=== PATIENT | female | born 1940 | race Caucasian/White ===

== ENCOUNTER 2017-08-02 09:59 | Outpatient (CLI) | payer MEDICARE, OTHER ==
--- NOTE | 2017-08-02 13:07 | RAD ---
FOUR VIEWS OF THE LUMBAR SPINE: DATE: 08/02/17. COMPARISON: None. HISTORY: Spondylosis of the lumbar spine, chronic back pain, bilateral radiculopathy, right greater than left. FINDINGS: Postoperative clips in the right upper quadrant suggest prior cholecystectomy. Arteriovascular stent material overlies the L1 and L2 vertebral bodies. Lumbar pedicles appear intact on frontal imaging. There is L4-5 and L5-S1 facet hypertrophic change. There is disk space narrowing and anterior osteophyte formation at L2-3, L3-4, and L4-5. There is no anterolisthesis or retrolisthesis seen on neutral lateral imaging. With flexion there is no anterol isthesis or retrolisthesis. In addition, extension imaging demonstrates no significant anterolisthes is or retrolisthesis. There is atherosclerotic calcification of the abdominal aorta. IMPRESSION: Degenerative changes. No acute osseous abnormality. POS: [facility]
--- NOTE | 2017-08-02 13:07 | MRI ---
MRI LUMBAR SPINE WITHOUT CONTRAST: Date: 08/02/17 COMPARISON: 04/13/16. HISTORY: Spondylosis of lumbar spine, chronic back pain, worsening bilateral radiculopathy, right greater than left. TECHNIQUE: Multiplanar, multisequence MR imaging of the lumbar spine is obtained without contrast. FINDINGS: The sagittal STIR imaging demonstrates no focal area of osseous marrow edema. Assuming five lumbar-ty pe vertebral bodies, the conus medullaris terminates at the T12-L1 level. T12-L1: Intervertebral disc height and signal intensity is within normal limits with no significant central c anal or neural foraminal stenosis. L1-2: Mild bilateral facet hypertrophy. Intervertebral disc height and signal intensity is within normal li mits with no significant central canal or neural foraminal stenosis. L2-3: Mild bilateral facet hypertrophy. Intervertebral disc height and signal intensity is within normal li mits with no significant central canal or neural foraminal stenosis. There is anterior osteophyte for mation noted. L3-4: Mild bilateral facet hypertrophy. Mild disc space narrowing and disc bulge with no significant centra l canal or neural foraminal stenosis. L4-5: There is bilateral facet hypertrophy. There is disc space narrowing, disc desiccation, and mild disc bulge. No significant central canal or neural foraminal stenosis. L5-S1: There is disc space narrowing and disc desiccation. There is bilateral facet hypertrophy. There is no significant central canal or neural foraminal stenosis. There is a tiny T2 hyperintense lesion within the upper pole of the right kidney likely representing a tiny stable cyst. IMPRESSION: Stable lumbar spine degenerative changes with no significant central canal or neural foraminal stenos is. POS: [facility]
== END 2017-08-02 10:00 | disposition home or self-care (01) ==
LOC: SCSMRI 09:59
PROVIDERS: ATTEND Nurse Practitioner Family
DX: M47.816 Spondylosis without myelopathy or radiculopathy, lumbar region (principal); M47.896 Other spondylosis, lumbar region
CPT/HCPCS: 72120; 72148

== ENCOUNTER 2017-11-28 10:54 | Outpatient (CLI) | payer MEDICARE, OTHER ==
[~2017-11-28 10:54] MED LIST: Gadobenate Dimeglumine 529 MG/1 ML (20ML VIAL) ONE
[2017-11-28 11:36] LABS: Estimated GFR-MDRD - POC Greater than 90
--- NOTE | 2017-11-28 13:17 | MRI ---
BRAIN MRI WITH AND WITHOUT CONTRAST: HISTORY: Numbness and tingling on the left side of the face. Left-sided headache. Previous left orbital floo r fracture. Evaluate for trigeminal neuralgia. COMPARISON: 09/15/2015 TECHNIQUE: A brain MRI is performed with and without intravenous Gadolinium administration. Multisequential, mu ltiplanar imaging is performed. Cranial nerve protocol is utilized. FINDINGS: The calvarium has a normal T1 marrow signal intensity. The midline brain parenchymal structures are unremarkable. No parenchymal mass, mass effect, or midline shift. Brain volume is age appropriate. Cortical raymundo white matter differentiation is preserved. The ventricles and sulci are patent and symmetric. Stable T2 and FLAIR white matter hyperintensities due to chronic small vessel ischemic change. Adequate aeration of the sinuses and mastoid air cells. No pathologic enhancement of the brain parenchyma. There is appropriate signal intensity in the V and VII and VIII cranial nerve complexes bilaterally. No abnormal enhancement of enhancing masses. IMPRESSION: 1. Absent restricted diffusion. 2. No acute infarction. 3. No magnetic resonance evidence of abnormal enhancement involving the VII, VIII or V cranial nerve complexes. 4. Chronic small vessel ischemic change of the white matter. POS: [facility]
== END 2017-11-28 10:55 | disposition home or self-care (01) ==
LOC: SCSMRI 10:54
PROVIDERS: ATTEND Psychiatry & Neurology Neurology
DX: G50.0 Trigeminal neuralgia (principal)
CPT/HCPCS: 70553; 82565; A9579

== ENCOUNTER 2018-02-05 12:42 | Outpatient (CLI) | payer MEDICARE, OTHER ==
--- NOTE | 2018-02-05 13:16 | RAD ---
THREE VIEWS LUMBAR SPINE: History: Fall, vertebral collapse. FINDINGS: AP, lateral, and coned down views of the lumbar spine are obtained. Images demonstrate significant vertebral height loss at the L1 vertebral level. This has progressed s leila the previous comparison exam from 12-11-17. Arterial stents are seen in the superior mesenteric artery as well as right and left iliac arteries, as well as the right and left renal arteries. There is grade 1 anterolisthesis of L4 on L5 with disc space height loss seen at this level. IMPRESSION: L1 increasing compression fracture and height loss. POS: [facility]
== END 2018-02-05 12:43 | disposition home or self-care (01) ==
LOC: TBSIIMAG 12:42
PROVIDERS: ATTEND Neurological Surgery
DX: S32.019A Unspecified fracture of first lumbar vertebra, initial encounter for closed fracture (principal)
CPT/HCPCS: 72100

== ENCOUNTER 2018-03-31 08:52 | Outpatient (CLI) | payer MEDICARE, OTHER ==
--- NOTE | 2018-03-31 11:10 | MRI ---
MRI LUMBAR SPINE NONCONTRAST: HISTORY: Back pain. Compression fracture. COMPARISON: 08/02/17. FINDINGS: Conus medullaris has a normal appearance. Compression of the L1 vertebral body with loss of height b y greater than 50% correlates with compression on radiographs from 02/05/18. Edema remains throughout the compressed vertebral body and extends into each pedicle. There is up to 0.5 cm retropulsion of the compressed superior end plate, although it results in very little effacement of the ventral aspec t of the thecal sac on the axial images. The neural foramen remain patent. Other vertebral body heights and bone marrow signal are within normal limits. Mild disk bulges at th e lowest 3 levels and other degenerative changes are stable without focal nerve root compression evid ent. IMPRESSION: 1. Residual edema within the L1 compression fracture with very mild retropulsion, as detailed above. Degree of compression is stable compared to the most recent radiograph. 2. Mild degenerative changes lower lumbar spine are stable. POS: [facility]
== END 2018-03-31 08:53 | disposition home or self-care (01) ==
LOC: SCSMRI 08:52
PROVIDERS: ATTEND Neurological Surgery
DX: M47.26 Other spondylosis with radiculopathy, lumbar region (principal); S32.019D Unspecified fracture of first lumbar vertebra, subsequent encounter for fracture with routine healing
CPT/HCPCS: 72148

== ENCOUNTER 2018-04-23 11:11 | Outpatient (CLI) | payer MEDICARE, OTHER ==
[2018-04-23 13:13] LABS: Hemoglobin 13.2 g/dL (12.0-16.0); Mean Corpuscular HGB CONC 33.5 g/dL (32.0-36.0); Mean Corpuscular Hemoglobin 28.9 pg (27.0-31.0); Mean Corpuscular Volume 86.2 fL (78.0-98.0); Mean Platelet Volume 6.2 fL (7.4-10.4); Platelet Count 328 thou/uL (130-400); RBC Distribution Width 12.9 % (11.5-14.5); Red Blood Cell (RBC) Count 4.57 mill/uL (4.20-5.40); White Blood Cell (WBC) Count 8.6 thou/uL (4.8-10.8)
[2018-04-23 13:22] LABS: Prothrombin Time 12.9 SEC (12.0-14.7)
[2018-04-23 13:23] LABS: PTT 33.9 SEC (22.9-36.1)
[2018-04-23 13:30] LABS: Anion Gap 11 mmol/L (10-20); BUN (Urea Nitrogen) 12 mg/dL (9.8-20.1); Calc. Creatinine Clearance 0 mL/min (70-130); Calcium 9.9 mg/dL (7.8-10.44); Carbon Dioxide 28 mmol/L (23-31); Chloride 92 mmol/L (98-107); Estimated GFR-MDRD Greater than 90; Glucose 90 mg/dL (83-110); Potassium 4.2 mmol/L (3.5-5.1); Sodium 127 mmol/L (136-145)
--- NOTE | 2018-04-27 20:38 | EKG ---
Test Reason : Blood Pressure : / mmHG Vent. Rate : 061 BPM Atrial Rate : 061 BPM P-R Int : 174 ms QRS Dur : 116 ms QT Int : 432 ms P-R-T Axes : 034 -15 021 degrees QTc Int : 434 ms Normal sinus rhythm Possible Anterior infarct , age undetermined Abnormal ECG When compared with ECG of 06-JAN-2012 11:57, Borderline criteria for Anterior infarct are now Present Confirmed by Anabel GOMEZ ([id number]) on 04/27/2018 8:38:14 PM Referred By: JADYN Confirmed By:Anabel GOMEZ
== END 2018-04-23 11:12 | disposition home or self-care (01) ==
LOC: LABBT 11:11
PROVIDERS: ATTEND Neurological Surgery
DX: Z01.818 Encounter for other preprocedural examination (principal); M48.56XA Collapsed vertebra, not elsewhere classified, lumbar region, initial encounter for fracture
CPT/HCPCS: 80048; 85027; 85610; 85730; 93005; 93010

== ENCOUNTER 2018-04-24 11:21 | Day surgery (SDC) | payer MEDICARE, OTHER ==
[2018-04-23 11:42] VITALS: BMI 32.8
--- NOTE | 2018-04-23 12:50 | HP ---
HISTORY OF PRESENT ILLNESS: This is a 77-year-old female who is following up from an ER visit where she sustained an L1 compression fracture on 12/05/2017. The patient states that she has pain in the low back, but it is improving some. She is getting home health and doing some exercises on her own. She had her bone density test done last year showing osteopenia. She is taking calcium and vitamin D and she was supposed to have another test next month. The patient states that the pain is limiting her activities. She cannot tolerate the brace any longer. She has been in for several months at th is point. She has no new weakness or numbness, but pain in the legs. REVIEW OF SYSTEMS: A 10-point review of systems has been completed and is negative other than stated above in the HPI. 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 PAST SURGICAL HISTORY: Deviated septum, SMA stent in 2011, renal artery stent in 2012, renal artery stent 2016. Lumbar facet blocks, hysterectomy. FAMILY HISTORY: Father is , diagnosed with heart disease, hypertension. Mother is , diagnosed with heart disease, hypertension and a stroke. Siblings are . She has a son and a daughter who is alive. SOCIAL HISTORY: The patient is a former smoker, quit in 2016. No alcohol or other illicit drug use. She is retired. MEDICATIONS: Montelukast sodium, spironolactone, HCTZ, tramadol, hydrochlorothiazide, fluoxetine, tr azodone, levothyroxine sodium, carvedilol, losartan, famotidine, amitriptyline, aspirin 81 mg, pravas tatin sodium, Trileptal, CoQ10, calcium, vitamin D3, acetaminophen. ALLERGIES: PENICILLIN, CODEINE, TETRACYCLINE. PHYSICAL EXAMINATION: GENERAL: Well-appearing, alert and oriented, in no visible distress. HEENT: Head is normocephalic, atraumatic. Eyes; equal, round, reactive to light. Extraocular movem ents are intact. Hearing is intact. Moist mucous membranes. RESPIRATORY: Normal work of breathing on room air. CARDIAC: Regular rate and rhythm. Normal S1, S2. NEUROLOGIC: Gait and station are normal. Motor exam: There is normal strength in the iliopsoas, qu adriceps, hamstrings, anterior EHL, gastroc and toe flexors. SPINE: Tender at L1, paraspinal muscle spasms on both sides. IMAGING: MRI L1; stir signal change and compression vertebral body, canals open. ASSESSMENT: Stable burst fracture first lumbar vertebrae. PLAN: Dr. Ragland has offered kyphoplasty. We have obtained informed consent. We have discussed indications, risks, benefits, alternatives, and expected results from surgery. The risks discussed i ncluded, but were not limited to bleeding, infection, CSF leak, nerve damage, weakness, incontinence, cement embolization, cauda equina injury, arachnoiditis, paralysis, ventilator dependence, wheelchai r dependence, loss of vision, cardiopulmonary complications of anesthesia or . Long-term compli cations discussed included, but were not limited to spinal instability and the need for further surge ry. She states that she understands the risks and is willing to proceed with surgery.
[2018-04-24] MEDS ORDERED: Iopamidol 370 76% 50 ML VIAL FS ONE (12:24)
[2018-04-24] MEDS ORDERED: PHENYLEPHRINE-NS 100 MCG/ML 10 ML SYRINGE ONE (13:08)
[2018-04-24] MEDS ORDERED: Lidocaine 1% PF 5 ML VIAL ONE (13:08)
[2018-04-24] MEDS ORDERED: PROPOFOL 200 MG/20 ML VIAL ONE (13:08)
[2018-04-24] MEDS ORDERED: Glycopyrrolate 0.2 MG/ML 5 ML SYRINGE ONE (13:08)
[2018-04-24] MEDS ORDERED: ePHEDrine/0.9% NaCl/PF SYRINGE 50 mg/10 ml ONE (13:08)
[2018-04-24] MEDS ORDERED: Lidocaine 1% (PF) 30 ML VIAL ONE (13:15)
[2018-04-24] MEDS ORDERED: Midazolam HCl 2 mg/2 ml Vial ONE (13:37)
[2018-04-24] MEDS ORDERED: Fentanyl 100 MCG/2 ML VIAL ONE ×2 (13:37→15:34)
[2018-04-24] MEDS ORDERED: Propofol 500 MG/50 ML VIAL ONE (13:38)
[2018-04-24] MEDS ORDERED: Clindamycin/D5W 900 mg/50 ml Premix Bag ONE ×2 (13:44→17:41)
[2018-04-24] MEDS ORDERED: Levofloxacin 500 mg/D5W 100 ml Premix Bag ONE (13:45)
[2018-04-24] MEDS ORDERED: SUGAMMADEX SODIUM 200 MG/2 ML VIAL ONE (15:09)
[2018-04-24] MEDS ORDERED: traMADol HCl 50 MG TAB ONE (17:39)
--- NOTE | 2018-04-24 19:48 | OP ---
PREPROCEDURAL INDICATION: Treat pain. PREPROCEDURAL DIAGNOSIS: L1 compression fracture, nonhealing, with intractable pain. POSTPROCEDURAL DIAGNOSIS: L1 compression fracture, nonhealing, with intractable pain. PROCEDURE PERFORMED: Radiographically guided cement augmentation procedure (kyphoplasty) first lumba r vertebrae. PREPROCEDURAL MEDICATION: Levaquin 500 mg IV and clindamycin 900 mg IV. DRAINS: Zero. DRAIN TYPE: None. PROCEDURE IN DETAIL: The patient was brought to the biplane angio suite. General endotracheal anest hesia was induced and she was positioned prone on gel-filled chest rolls. The biplane angio table wa s positioned with AP and lateral fluoro radiographs centered on the L1 vertebral segment. We chose o ur entry points to access the pedicles and anesthetized under the entry points. The thoracic skin wa s sterilely prepped and draped. We opened with an 11 blade knife. We placed a Jamshidi needle into each of the pedicles. This was done under careful radiographic guidance entering the pedicle at 10 o 'clock on the left and at 2 o'clock on the right. We advanced through the pedicles under radiographi c guidance into the vertebral body aiming towards the midline at the anterior inferior margin of the vertebral body. The Jamshidi needles were positioned. We removed the guide stylet and advanced a linda ne biopsy probe into the vertebral body. One bone biopsy was taken and sent to pathology. We then u sed a bone drill to drill out to the anterior inferior portion of the vertebral body and then kyphopl asty balloons were inserted through the access cannula into the vertebral body. These kyphoplasty ba lloons were inflated inside the vertebral body and lifted the superior endplate and moved the inferio r endplate as well. Cement was prepared and once it was at the appropriate consistency, our balloons were deflated and withdrawn. We brought cement deposition cannulae through the access ports into th e vertebral body. We deposited methyl methacrylate cement into the cavities created by our kyphoplas ty balloons. The cement was administered until there was a small breach of the inferior endplate wit h cement in the disk space, more cement was placed from the left access cannulae that spread out unde rneath the superior endplate and interdigitated with fracture fragments across the vertebral body. A total of 3-4 mL of cement was administered. Once the cement was solid, the Jamshidi cannulae were r emoved. Cement was left behind. Spencer were applied to our access incisions and sterile dressings were applied. This was a clean case and no contamination.
== END 2018-04-24 18:33 | disposition home or self-care (01) ==
LOC: CCL 11:21
PROVIDERS: ATTEND Neurological Surgery
PROC: 0QS03ZZ Reposition Lumbar Vertebra, Percutaneous Approach (ICD-10-PCS; principal; 2018-04-24)
PROC: 0QU03JZ Supplement Lumbar Vertebra with Synthetic Substitute, Percutaneous Approach (ICD-10-PCS; 2018-04-24)
PROC: 0Q903ZX Drainage of Lumbar Vertebra, Percutaneous Approach, Diagnostic (ICD-10-PCS; 2018-04-24)
DX: S32.011A Stable burst fracture of first lumbar vertebra, initial encounter for closed fracture (principal); M85.80 Other specified disorders of bone density and structure, unspecified site; I10 Essential (primary) hypertension; E78.00 Pure hypercholesterolemia, unspecified; E03.9 Hypothyroidism, unspecified; K21.9 Gastro-esophageal reflux disease without esophagitis; M19.90 Unspecified osteoarthritis, unspecified site; F41.9 Anxiety disorder, unspecified; J32.9 Chronic sinusitis, unspecified; Z79.82 Long term (current) use of aspirin; Z79.899 Other long term (current) drug therapy; Z88.0 Allergy status to penicillin; Z88.1 Allergy status to other antibiotic agents; Z88.5 Allergy status to narcotic agent; W19.XXXA Unspecified fall, initial encounter
CPT/HCPCS: 22511; 88307; 88311; 88341; 88342; 96374; C1713 ×2; J1956; J2001; J2250; J2704; J3010; J3490

== ENCOUNTER 2018-08-14 14:23 | Outpatient (CLI) | payer MEDICARE, OTHER ==
--- NOTE | 2018-08-14 16:16 | MRI ---
MRI LUMBAR SPINE 08/14/18 COMPARISON: Comparison made to a previous exam from 03/31/18. History of back pain since fall. Multiplanar and multisequence noncontrast enhanced MRI images lumbar spine is obtained. Approximately 50% compression fracture of the L1 vertebral body seen. This is unchanged since the pre vious exam from 04/08/18. There continues to be edema and signal abnormality changes within the L1 vertebral level. There is mi ld retropulsion of the compressed vertebra into the spinal canal resulting in approximately 5 mm of p osterior displacement. The neural foramina are patent. L1-2, L3-4: Unremarkable. L3-4: There is a mild broad based disc bulge and mild facet hypertrophy. Central canal and neural for amen are patent. L4-5: There is a mild broad based disc bulge with bilateral facet and ligamentum flavum hypertrophy. This results in mild central and lateral recess stenosis. The neural foramen are patent. L5-S1: Mild facet hypertrophy is seen. The central canal and neural foramen are patent. IMPRESSION: L1 compression fracture with height loss unchanged since the previous exam. Some signal abnormality r emains within the vertebral body. Retropulsion is again seen and is unchanged. POS: [facility]
== END 2018-08-14 14:24 | disposition home or self-care (01) ==
LOC: SCSMRI 14:23
PROVIDERS: ATTEND Specialist
DX: M51.16 Intervertebral disc disorders with radiculopathy, lumbar region (principal); S32.019A Unspecified fracture of first lumbar vertebra, initial encounter for closed fracture
CPT/HCPCS: 72148

== ENCOUNTER 2023-07-04 10:35 | Outpatient (CLI) | payer MEDICARE, OTHER | END 2023-07-04 10:36 | disposition home or self-care (01) | LOC: RAD 10:35 | PROVIDERS: ATTEND Physician Assistant Medical | DX: R13.10 Dysphagia, unspecified (principal); K44.9 Diaphragmatic hernia without obstruction or gangrene | CPT/HCPCS: 74220 ==

== ENCOUNTER 2023-07-23 09:50 | Day surgery (SDC) | payer MEDICARE, OTHER ==
[2023-07-19 09:40] VITALS: BMI 34.5
[2023-07-23] MEDS ORDERED: Lidocaine 2% PF 5 ML VIAL ONE ×2 (12:19→12:20)
[2023-07-23] MEDS ORDERED: PROPOFOL 80 ML ONE (12:20)
== END 2023-07-23 13:35 | disposition home or self-care (01) ==
LOC: SDC 09:50
PROVIDERS: ATTEND Internal Medicine Gastroenterology
PROC: 0DB58ZX Excision of Esophagus, Via Natural or Artificial Opening Endoscopic, Diagnostic (ICD-10-PCS; principal; 2023-07-23)
PROC: 0DB78ZX Excision of Stomach, Pylorus, Via Natural or Artificial Opening Endoscopic, Diagnostic (ICD-10-PCS; 2023-07-23)
PROC: 0D717ZZ Dilation of Upper Esophagus, Via Natural or Artificial Opening (ICD-10-PCS; 2023-07-23)
DX: K21.00 Gastro-esophageal reflux disease with esophagitis, without bleeding (principal); K22.70 Barrett's esophagus without dysplasia; K44.9 Diaphragmatic hernia without obstruction or gangrene; Z86.010 Personal history of colon polyps; F41.9 Anxiety disorder, unspecified; M19.90 Unspecified osteoarthritis, unspecified site; E78.00 Pure hypercholesterolemia, unspecified; I10 Essential (primary) hypertension; K58.9 Irritable bowel syndrome, unspecified; G47.30 Sleep apnea, unspecified; E07.9 Disorder of thyroid, unspecified; Z90.89 Acquired absence of other organs; Z90.49 Acquired absence of other specified parts of digestive tract; Z88.5 Allergy status to narcotic agent; Z88.0 Allergy status to penicillin; Z88.1 Allergy status to other antibiotic agents; Z79.01 Long term (current) use of anticoagulants; Z79.899 Other long term (current) drug therapy
CPT/HCPCS: 88305; 88312; 88313; J2001; J2704